=== PATIENT | female | born 2000 | race Caucasian/White ===

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

== ENCOUNTER 2022-06-20 17:19 | Inpatient (IN) | payer OTHER ==
[~2022-06-20] VITALS: Ht 165.1 cm; Wt 99.3 kg
== END 2022-06-22 14:16 | disposition home or self-care (01) | DRG 807 ==
LOC: LDR 17:19 → OB/GYN 06-21 14:00
PROVIDERS: ADMIT Obstetrics & Gynecology; ATTEND Obstetrics & Gynecology
PROC: 10E0XZZ Delivery of Products of Conception, External Approach (ICD-10-PCS; principal; 2022-06-20)
PROC: 0UQMXZZ Repair Vulva, External Approach (ICD-10-PCS; 2022-06-20)
PROC: 4A1HXCZ Monitoring of Products of Conception, Cardiac Rate, External Approach (ICD-10-PCS; 2022-06-20)
DX: O71.82 Other specified trauma to perineum and vulva (principal); Z37.0 Single live birth; Z3A.38 38 weeks gestation of pregnancy; Z20.822 Contact with and (suspected) exposure to COVID-19

== ENCOUNTER 2024-12-02 10:54 | Outpatient (CLI) | payer OTHER | END 2024-12-02 10:55 | disposition home or self-care (01) | LOC: PRENATAL 10:54 | PROVIDERS: ATTEND Obstetrics & Gynecology Maternal & Fetal Medicine | DX: O36.8199 Decreased fetal movements, unspecified trimester, other fetus (principal); O44.00 Complete placenta previa NOS or without hemorrhage, unspecified trimester; Z3A.30 30 weeks gestation of pregnancy ==

== ENCOUNTER 2025-01-23 21:19 | Inpatient (IN) | payer OTHER ==
[~2025-01-23] VITALS: Ht 152.4 cm; Wt 106.6 kg
[2025-01-23 21:06] VITALS: BP 110/68
[2025-01-23] MEDS ORDERED: RINGERS SOLUTION,LACTATED 1,000 ML IV SCH (21:30)
[2025-01-23] MEDS ORDERED: AMPICILLIN SODIUM 2,000 MG VIAL IV ONE (21:30)
[2025-01-23 22:02] LABS: HEMOGLOBIN 12.2 g/dL (12.0-15.00); MEAN CORPUSCULAR HEMOGLOBIN 26.4 pg (27.00-32.0); PLATELET COUNT 223 K/uL (150-450); RED BLOOD COUNT 4.63 M/uL (4.00-6.00); RED CELL DISTRIBUTION WIDTH 14.9 % (11.5-14.5)
[2025-01-23 22:03] LABS: PH,URINE 7.5 (5.0-8.0); URINE APPEARANCE Clear; URINE BILIRRUBIN Negative (NEGATIVE); URINE BLOOD Negative; URINE COLOR Yellow; URINE GLUCOSE Negative (NEGATIVE); URINE KETONE Negative (NEGATIVE); URINE LEUKOCYTE Negative; URINE NITRATE Negative; URINE PROTEIN Negative (NEGATIVE)
[2025-01-23 22:06] LABS: URINE BACTERIA 156.6 uL (0.0-1933); URINE EPITHELIAL CELLS 28.9 uL (0.0-38.8); URINE RBC 6.4 uL (0.0-20.8); URINE WBC 20.2 uL (0.0-23.2)
[2025-01-23 22:18] LABS: INR < 0.93; PARTIAL THROMBOPLASTIN TIME 25.8 SECONDS (22.0-34.0); PROTHROMBIN TIME 9.9 SECONDS (9.0-11.5)
[2025-01-23 22:28] LABS: URINE CAST 0.44 uL (0.0-1.40)
[2025-01-23 22:32] LABS: ALBUMIN 2.8 gm/dL (3.4-5.0); BILIRUBIN TOTAL 1.08 mg/dL (0.3-1.2); CALCIUM 9.3 mg/dL (8.5-10.1); CREATININE SERUM 0.7 mg/dL (0.55-1.02); GFR 104.64; GLOBULINA 3.8 G/DL (2.4-3.5); POTASSIUM 3.93 mEq/L (3.5-5.1); TOTAL PROTEIN 6.6 gm/dL (6.4-8.2)
[2025-01-23 23:11] VITALS: BP 117/57
[2025-01-24] VITALS (10 sets, daily range): BP systolic 105–128; BP diastolic 44–85
[2025-01-24] MEDS ORDERED: AMPICILLIN SODIUM 1,000 MG VIAL IV SCH (01:00)
[2025-01-24] MEDS ORDERED: CHLORHEXIDINE GLUCONATE 120 ML BOTTLE TOP ONE ×2 (06:40→06:51)
[2025-01-24] MEDS ORDERED: ERYTHROMYCIN BASE OPHT 1GM EACH TUBE OP ONE ×2 (06:40→09:30)
[2025-01-24] MEDS ORDERED: LIDOCAINE HCL 1% 10ML VIAL ONE (06:40)
[2025-01-24] MEDS ORDERED: OXYTOCIN 20 UNITS/1000ML RL PIGGYBAG IV ONE (06:40)
[2025-01-24] MEDS ORDERED: OXYTOCIN 1,000 ML IV SCH (09:00)
[2025-01-24] MEDS ORDERED: ACETAMINOPHEN 500 MG GEL..CAP PO PRN (09:00)
[2025-01-24] MEDS ORDERED: CHLORHEXIDINE GLUCONATE 120 ML BOTTLE TOP SCH (09:00)
[2025-01-24] MEDS ORDERED: PNV,CALCIUM 72/IRON/FOLIC ACID 1 TAB TABLET PO SCH (09:00)
[2025-01-25 01:00] VITALS: BP 108/58
[2025-01-25 07:46] VITALS: BP 106/71
[2025-01-25 13:29] VITALS: BP 128/86
[2025-01-25 16:00] VITALS: BP 124/80
[2025-01-26 00:23] VITALS: BP 116/75
[2025-01-26 08:26] VITALS: BP 118/60
[2025-01-26 16:00] VITALS: BP 106/70
[2025-01-26 17:56] VITALS: BP 106/70
== END 2025-01-26 17:10 | disposition home or self-care (01) | DRG 807 ==
LOC: LDR 21:19 → OB/GYN 21:19
PROVIDERS: Obstetrics & Gynecology; ADMIT Obstetrics & Gynecology; ATTEND Obstetrics & Gynecology
PROC: 10E0XZZ Delivery of Products of Conception, External Approach (ICD-10-PCS; principal; 2025-01-23)
PROC: 4A1HXCZ Monitoring of Products of Conception, Cardiac Rate, External Approach (ICD-10-PCS; 2025-01-23)
DX: O80 Encounter for full-term uncomplicated delivery (principal); Z37.0 Single live birth; Z3A.38 38 weeks gestation of pregnancy